=== PATIENT | female | born 1985 | race Caucasian/White ===

== ENCOUNTER 2018-01-08 23:00 | Emergency (ER) | payer OTHER ==
[~2018-01-08] VITALS: Ht 154.9 cm; Wt 98.7 kg
[~2018-01-08 23:00] MED LIST: CETIRIZINE HCL10 M2 PO; FLUOXETINE20 MG/5 ML PO; VITAMIN D PO
[2018-01-08 23:45] LABS: HEMATOCRIT 38.1 % (36.0-46.0); HEMOGLOBIN 12.8 G/DL (11.9-15.5); MCH 26.9 PG (29.0-34.0); MCHC 33.6 G/DL (30.0-36.0); PLATELET COUNT 262 K/uL (156-360); RBC DIS.WIDTH-CV 14.3 % (11.8-14.6); RBC DIS.WIDTH-SD 41.6 % (39-53); RED BLOOD COUNT 4.76 M/uL (3.80-5.20); WHITE BLOOD COUNT 8.9 K/uL (4.1-10.2)
[2018-01-09 00:02] LABS: CHLORIDE 108 mEq/L (99-109); POTASSIUM 3.9 mEq/L (3.7-5.4); SODIUM 139 mEq/L (136-147)
[2018-01-09 00:03] LABS: GLUCOSE 113 mg/dL (70-99)
[2018-01-09 00:07] LABS: GFR ESTIMATE (CALCULATED) > 59 mL/min/; TROP-I INTERPRETATION NEGATIVE; TROPONIN-I < 0.01 ng/mL (0.0-0.30)
[2018-01-09 00:08] LABS: UREA NITROGEN (BUN) 17 mg/dL (9-23)
[2018-01-09 01:07] LABS: ALBUMIN 4.6 g/dL (3.2-4.8)
[2018-01-09 01:10] LABS: TOTAL PROTEIN 7.3 g/dL (6.4-8.3)
[2018-01-09 01:12] LABS: TOTAL BILIRUBIN 0.3 mg/dL (0.0-1.0)
[2018-01-09 01:13] LABS: ALKALINE PHOSPHATASE 36 IU/L (3-129)
[2018-01-09 01:15] LABS: AST (GOT) 19 IU/L (2-34); DIRECT BILIRUBIN 0.1 mg/dL (0.0-0.3)
[2018-01-09 01:16] LABS: ALT (GPT) 19 IU/L (3-49); LIPASE 60 U/L (1.0-51.0)
[2018-01-09] MEDS ORDERED: NORCO 5/3251 TABLET PO (05:11)
[2018-01-09] MEDS ORDERED: ZOFRAN4 MG PO (05:11)
[2018-01-09] MEDS ORDERED: AUGMENTIN875 MG PO (05:11)
[2018-01-09] MEDS ORDERED: AUGMENTIN80 MG/ML PO (05:23)
[2018-01-09] MEDS ORDERED: OXYCODONE H5 MG/5 ML PO (05:23)
[2018-01-09 05:29] VITALS: BP 115/69
== END 2018-01-09 05:31 | disposition home or self-care (01) ==
LOC: EME 23:00
DX: K80.20 Calculus of gallbladder without cholecystitis without obstruction (principal)
CPT/HCPCS: 71046; 71275; 76705; 80048; 80076; 83690; 84484; 85027; 85379; 93005; 99281; 99284; J7030; S0028

== ENCOUNTER 2018-01-24 05:30 | Day surgery (SDC) | payer OTHER ==
[~2018-01-24] VITALS: Ht 154.9 cm; Wt 98.4 kg
[~2018-01-24 05:30] MED LIST changes: +AUGMENTIN80 MG/ML PO; +AUGMENTIN875 MG PO; +NORCO 5/3251 TABLET PO; +OXYCODONE H5 MG/5 ML PO; +ZANTAC75 M1 PO; +ZOFRAN4 MG PO
[2018-01-24 06:08] VITALS: BP 126/78
[2018-01-24 10:28] VITALS: BP 115/59
[2018-01-24 11:24] VITALS: BP 118/57
== END 2018-01-24 11:35 | disposition home or self-care (01) ==
LOC: SDC 05:30
PROVIDERS: Surgery
PROC: 0FT44ZZ Resection of Gallbladder, Percutaneous Endoscopic Approach (ICD-10-PCS; principal; 2018-01-24)
DX: K80.10 Calculus of gallbladder with chronic cholecystitis without obstruction (principal); E66.01 Morbid (severe) obesity due to excess calories; Z68.41 Body mass index [BMI] 40.0-44.9, adult; K21.9 Gastro-esophageal reflux disease without esophagitis
CPT/HCPCS: 81025; 88304; J0131; J1100; J1170; J1644; J2250; J2405; J2710; J3010; J7643; S0020; S0074